=== PATIENT | male | born 1965 | race Caucasian/White ===

== ENCOUNTER 2024-12-19 14:30 | Emergency (ER) | payer MEDICAID, OTHER ==
[~2024-12-19] VITALS: Ht 195.6 cm; Wt 112.0 kg
[2024-12-19 14:38] VITALS: O2SAT 98
[2024-12-19 14:39] VITALS: TEMP 36.6; O2SAT 96
[2024-12-19] MEDS ORDERED: IBUP-1455 MT (15:57)
[2024-12-19 16:16] VITALS: BP 120/72; PULSE 91; RESP 18
[2024-12-19] MEDS: KETOROLAC 30MG/ML VIAL IM ONE (16:16)
== END 2024-12-19 16:15 | disposition home or self-care (01) ==
LOC: ER 14:31
DX: S83.92XA Sprain of unspecified site of left knee, initial encounter (principal); E11.9 Type 2 diabetes mellitus without complications; I10 Essential (primary) hypertension; Z98.890 Other specified postprocedural states; X58.XXXA Exposure to other specified factors, initial encounter; Y93.89 Activity, other specified; Y92.89 Other specified places as the place of occurrence of the external cause; Y99.8 Other external cause status
CPT/HCPCS: 73560; 29505; 96372; 99283; J1885; Z7610 ×2